=== PATIENT | male | born 1975 | race Caucasian/White ===

== ENCOUNTER 2020-10-16 11:28 | Emergency (ER) | payer MEDICAID ==
[~2020-10-16] VITALS: Ht 172.7 cm; Wt 78.0 kg
[2020-10-16 11:28] VITALS: BP_SYST 109
== END 2020-10-16 11:50 | disposition home or self-care (01) ==
LOC: SED 11:28
DX: L02.414 Cutaneous abscess of left upper limb (principal); L02.413 Cutaneous abscess of right upper limb
CPT/HCPCS: 99283